=== PATIENT | male | born 1995 | race Two or more races ===

== ENCOUNTER 2020-10-12 21:27 | Emergency (ER) | payer SELFPAY ==
[~2020-10-12] VITALS: Ht 188 cm; Wt 127.0 kg
[2020-10-12] MEDS ORDERED: SODIUM CHLORIDE 0.9% 1,000 ML IV ONE ×2 (21:45→23:30)
[2020-10-12] MEDS ORDERED: LORAZEPAM 2MG/ML CPJ IV ONE (21:45)
[2020-10-12 22:48] LABS: BASOPHILS % 0.6 % (0.0-2.0); EOSINOPHILS % 0.8 % (0.0-5.0); HEMATOCRIT. 44.7 % (42.0-52.0); HEMOGLOBIN. 14.6 g/dL (14.0-18.0); LYMPHOCYTES % 47.8 % (20.0-50.0); MEAN CORPUSCULAR HEMOGLOBIN 27.9 pg (28.0-32.0); MEAN CORPUSCULAR VOLUME 85.3 fL (80.0-94.0); MEAN PLATELET VOLUME 9.2 fl (7.4-10.4); MONOCYTES % 5.7 % (2.0-8.0); NEUTROPHILS % 45.1 % (40.0-76.0); PLATELET 242 x1000/uL (130-400); RED BLOOD CELL COUNT 5.24 mill/uL (4.7-6.1); RED CELL DISTRIBUTION WIDTH 13.8 % (11.6-14.6)
[2020-10-12 22:56] LABS: CHLORIDE 103 mEq/L (98-107)
[2020-10-12] MEDS ORDERED: INSULIN LISPRO 100 UNITS/ML SUBCUT ONE (23:30)
[2020-10-13 06:05] VITALS: BP 118/65
[2020-10-13] MEDS ORDERED: INSULIN GLARGINE UD 100 UNITS/ML SYR SUBCUT SCH (10:00)
== END 2020-10-13 08:27 | disposition left against medical advice (07) ==
LOC: ER 21:27 → CANBEDREQ 10-13 16:17
DX: E11.65 Type 2 diabetes mellitus with hyperglycemia (principal); T40.7X1A Poisoning by cannabis (derivatives), accidental (unintentional), initial encounter; F12.188 Cannabis abuse with other cannabis-induced disorder; R00.0 Tachycardia, unspecified; Y92.89 Other specified places as the place of occurrence of the external cause
CPT/HCPCS: 36415; 71045; 80053; 82962; 85025; 93005; 96372; 96374; 99285; J1815; J2060; J7030